=== PATIENT | female | born 1965 | race Caucasian/White ===

== ENCOUNTER 2024-10-10 13:19 | Inpatient (IN) ==
[2024-10-10] MEDS: TICAGRELOR 90 MG TAB PO ONE (13:30)
[2024-10-10] MEDS: HEPARIN SOD (PORCINE) 1000 UNIT/ML IV ONE (13:30)
--- NOTE | 2024-10-10 13:39 | Emergency Department Note ---
Impression & Plan ST elevation (STEMI) myocardial infarction ED Provider Note Provider: Bennett Tilley MD CHIEF COMPLAINT: Chest pain, nausea, jaw pain HISTORY OF PRESENT ILLNESS: Patient is a 58-year-old female presenting via ambulance from [facility] rehab today. Patient from the [facility]. Has been recent September 18 for cocaine rehab. Denies any relapse over the past several weeks. Over the last 2 weeks acetaminophen chest discomfort particular last 3 to 4 days worsening. Worsened today and became somewhat sweaty. Took an aspirin at the facility and then with her ongoing symptoms EMS was activated. Contacted prior to arrival by EMS and heart alert initiated with concerns for inferior inferior lateral STEMI. Patient herself reports 4 out of 10 pain now is 8 out of 10 earlier in the center of the chest rating to the left jaw. She thought she might of had a little bit of tooth issues over the last week or 2. Patient denies any history of diabetes but is a smoker and is a family history of cardiac disease. PAST MEDICAL HISTORY: As noted above MEDICATIONS: Reviewed medication list from the facility SOCIAL HISTORY: Smoker PHYSICAL EXAM: GENERAL: alert and oriented appears mildly uncomfortable. A bit nervous. Head: normocephalic and atraumatic EYES: No injection, discharge or icterus. NECK: Trachea midline. ENT: Mucous membranes pink and moist. LUNGS: Airway patent. No retractions. Breath sounds clear HEART: Regular rate and rhythm. No chest wall tenderness ABDOMEN: Soft and non-tender, without guarding or rebound. SKIN: Acyanotic, warm, dry, without rashes EXTREMITIES: Without swelling, tenderness or deformity NEUROLOGICAL: No focal deficits. No aphasia. No facial droop or slurred speech. EK bpm normal sinus rhythm with PVC. Inferior with some slight lateral ST elevation noted depression and reciprocal changes in 1, aVL, V1 V2. Concerning STEMI CONTINUOUS CARDIAC MONITORING: was ordered and showed a heart rate of 40s to 60s bpm in sinus bradycardia to normal sinus rhythm occasional sinus arrhythmia Patient's laboratory studies and imaging reviewed. Differential includes Cardiac ischemia, aortic dissection, pulmonary embolism, pneumothorax, pneumonia, pericarditis, myocarditis, esophageal rupture, GERD, cholecystitis, pancreatitis, musculoskeletal, as well as other pathologies. IMPRESSION/MEDICAL DECISION MAKING: Patient 4-5 out of 10 pain. Improved with some Zofran for nausea as well as some fentanyl prior to arrival. Benign abdomen denies abdominal pain. EKG concerning for STEMI and heart alert has already been activated. Given aspirin prior to arrival given additional 180 mg of Brilinta as well as 5000 units of heparin here. No trauma history. Blood work is sent. No obvious severe electrolyte abnormality or renal dysfunction apart. Patient family risk factor as well as age and smoking history seems likely CAD. Lower suspicion for PE or dissection at this time. Evaluated by interventional cardiology here and taken to the [facility] for further care. Went through paperwork to try to find a phone number for the patient's daughter but none was obviously found to contact her. At this time no trauma or significant arrhythmias noted. Blood work here leg without severe anemia or significant acute renal dysfunction. Does have a troponin elevation of 71. DIAGNOSIS: STEMI, chest pain DISPOSITION: To the [facility] for further care. Critical Care I have personally spent 31 minutes of critical care time in the direct management of this patient. This includes bedside care, interpretation of diagnostic studies, and testing, discussion with consultants, patient, and other required patient management activities. These 31 minutes is in excess of all separately billable procedures. Past Med/Surg History Problem List (Updated 10/10/24 @ 15:27 by Mikhail Lazaro MD, PhD) Coronary artery disease Atherogenic dyslipidemia Abnormal thyroid blood test Cocaine dependence in remission ST elevation (STEMI) myocardial infarction (Acute) Social History Smoking Status: Current every day smoker Tobacco Type: Cigarettes Cigarettes Per Day: 1/2 PPD; Second Hand Exposure: No; Do You Dip or Chew Tobacco: No; Hx Alcohol Use: No Hx Substance Use: Yes Last Used Substance Other:: 08/15/2025 Preferred Language: Solomon Islander Communication Ability: Effective Knotting Machine Operator Required: No Beliefs That Will Affect Care: None Current Living Situation: Alone Feels Safe at Home: Yes Assistive Devices: Glasses Allergies Allergies Allergy/AdvReac Type Severity Reaction Status Date / Time No Known Allergies Allergy Unverified 10/10/24 14:56 Home Meds Home Medications Medication Instructions Recorded Confirmed famotidine 20 mg PO DAILY 10/10/24 10/10/24 venlafaxine 150 mg PO DAILY 10/10/24 10/10/24 Results & Data (ED) Vital Signs Vital Signs - 24 hr 10/10/24 13:25 10/10/24 13:27 10/10/24 13:27 Temperature 37.3 C Temperature Source Oral Pulse Rate 63 Pulse Rate [Right Finger] 60 Respiratory Rate 20 Respiratory Effort / Characteristics Non-Labored Spontaneous Respiratory Depth Normal Respiratory Pattern Regular Blood Pressure [Right Arm] 123/78 Blood Pressure Mean [Right Arm] 93 Pulse Oximetry 98 Oxygen Delivery Method Room Air Sepsis Recent Fever Within 48 Hours No Sepsis New/Unexplained Change in Mental Status No Sepsis Action Taken by Nursing No Action Required Laboratory Data 10/10/24 15:52 10/10/24 13:27 Lab Results 10/10/24 10/10/24 10/10/24 Range/Units 13:27 13:33 13:40 WBC 11.57 H (4.8-10.8) K/ul RBC 5.21 (4.20-5.40) M/uL Hgb 15.8 (12.0-16.0) g/dl POC Hgb 16.3 H (12.0-16.0) g/dl Hct 46.9 (37.0-47.0) % POC Hct 48 H (37-47) % MCV 90.0 (80.0-100.0) fL MCH 30.3 (25.0-34.0) pg MCHC 33.7 (32.0-36.0) g/dL RDW Std Deviation 42.5 (36.4-46.3) fL RDW Coeff of Sorin 12.9 (11.5-14.5) % Plt Count 271 (130-400) K/uL MPV 11.4 (9.4-12.4) fL Immature Gran % (Auto) 0.3 % Neut % (Auto) 75.9 % Lymph % (Auto) 17.7 % Rains % (Auto) 5.2 % Eos % (Auto) 0.3 % Baso % (Auto) 0.6 % Neut # (Auto) 8.78 H (1.40-6.50) K/uL Lymph # (Auto) 2.05 (1.20-3.40) K/uL Rains # (Auto) 0.60 H (0.11-0.59) K/uL Eos # (Auto) 0.04 (0.00-0.50) K/uL Baso # (Auto) 0.07 (0.00-0.20) K/uL Immature Gran # (Auto) 0.03 (0.01-0.20) K/uL PT 10.2 (9.0-12.0) Seconds INR 0.9 (0.9-1.1) APTT 34 H (21-31) Seconds PTT Ratio 1.3 POC Sodium 138 (135-144) mmol/L Sodium 136 (136-145) mmol/L POC Potassium 4.5 (3.3-5.0) mmol/L Potassium 4.5 (3.5-5.1) mmol/L POC Chloride 105 (101-112) mmol/L Chloride 102 (98-107) mmol/L Carbon Dioxide 26 (21-32) mmol/L POC Total CO2 24 (24-31) mmol/L Anion Gap 8 (3-11) POC Anion Gap 14.0 L (16-25) mmol/L POC BUN 19 H (7-18) mg/dl BUN 18 (6-23) mg/dl Creatinine 0.99 (0.6-1.2) mg/dl POC Creatinine 1.0 (0.6-1.3) mg/dl Est Cr Clr Drug Dosing 62.3 ml/min eGFR 66.09 BUN/Creatinine Ratio 18.2 (10-20) Glucose 168 H (70-99(Fasting)) mg/dl POC Glucose (other) 167 H (70-99) mg/dl Calcium 10.1 (8.6-10.3) mg/dl POC Ioniz Calcium Sandy 1.19 (1.12-1.32) mmol/l Magnesium 2.1 (1.7-2.4) mg/dl Total Bilirubin 0.4 (0.2-1.0) mg/dl AST 17 (13-39) U/L ALT 23 (7-52) U/L Alkaline Phosphatase 128 H (34-104) U/L Total Creatine Kinase 22 L (26-192) U/L Troponin I High Sens 71.1 H* (0-14) pg/ml B-Natriuretic Peptide 37 (0-100) pg/ml Total Protein 8.0 (6.0-8.3) gm/dl Albumin 4.4 (3.4-5.0) gm/dl Globulin 3.6 (2.5-4.0) gm/dl Albumin/Globulin Ratio 1.2 (0.9-2) Lipase 28 (11-82) U/L TSH 6.403 H (0.300-4.500) uIu/ml Free T4 0.53 L (0.61-1.60) ng/dl SARS-CoV-2, RNA, NAAT NEGATIVE (NEGATIVE) Administered Medications Atorvastatin Calcium (Atorvastatin 40 Mg Tab) [facility] [place]: 11/09/24 15:14 Last Admin: 10/10/24 16:01 Dose: 40 mg Documented By: JD Famotidine (Famotidine 20 Mg Tab) 20 mg PO BID [facility] Stop: 11/09/24 16:29 Last Admin: 10/10/24 16:42 Dose: 20 mg Documented By: JD Levothyroxine Sodium (Levothyroxine Sodium 25 Mcg Tablet) 25 mcg PO DAILYBB [facility] Stop: 11/09/24 15:59 Last Admin: 10/10/24 16:34 Dose: 25 mcg Documented By: JD Venlafaxine HCl (Venlafaxine Hcl Xr 150 Mg Capxr) [facility] [place]: 11/09/24 16:29 Last Admin: 10/10/24 16:42 Dose: 150 mg Documented By: JD Discontinued Medications Fentanyl Citrate (Fentanyl Citrate Pf 100 Mcg/2 Ml Vial) Confirm Administered Dose 100 mcg .ROUTE .STK-MED ONE Stop: 10/10/24 13:26 Last Increment: 10/10/24 14:11 Dose: 25 mcg Documented By: MADHU Heparin Sodium (Porcine) (Heparin (Porcine) 1000 Unit/Ml 10 Ml (Bible Worker Use Only)) Confirm Administered Dose 10,000 units .ROUTE .STK-MED ONE Stop: 10/10/24 13:26 Last Admin: 10/10/24 14:11 Dose: Not Given Documented By: MADHU Heparin Sodium (Porcine) (Heparin Sod (Porcine) 1000 Unit/Ml) 5,000 units IV NOW ONE Stop: 10/10/24 13:28 Last Admin: 10/10/24 13:30 Dose: 5,000 units Documented By: JAMES Co-signed By: Heparin Sodium/Sodium Chloride (Heparin In Nss Infusion 1000 Unit/500 Ml (2 U/Ml) Bag) Confirm Administered Dose 3,000 units IV .STK-MED ONE Stop: 10/10/24 13:26 Last Admin: 10/10/24 14:11 Dose: 3,000 units Documented By: AAF Ioversol (Optiray 350) Confirm Administered Dose 1 ml .ROUTE .STK-MED ONE Stop: 10/10/24 13:27 Last Admin: 10/10/24 14:13 Dose: 140 ml Documented By: AAF Midazolam HCl (Midazolam Hcl 1 Mg/Ml 2ml Vial) Confirm Administered Dose 2 mg .ROUTE .STK-MED ONE Stop: 10/10/24 13:26 Last Increment: 10/10/24 14:11 Dose: 1 mg Documented By: AAF Nicardipine HCl (Nicardipine Hcl Inj 2.5 Mg/Ml 10 Ml Amp) Confirm Administered Dose 25 mg .ROUTE .STK-MED ONE Stop: 10/10/24 13:26 Last Admin: 10/10/24 14:12 Dose: 25 mg Documented By: MADHU Nitroglycerin/Dextrose (Nitroglycerin/D5w 100mcg/Ml 20ml Syr) Confirm Administered Dose 2,000 mcg .ROUTE .STK-MED ONE Stop: 10/10/24 13:27 Last Admin: 10/10/24 14:13 Dose: 2,000 mcg Documented By: AAF Ticagrelor (Ticagrelor 90 Mg Tab) 180 mg PO ONE ONE Stop: 10/10/24 13:28 Last Admin: 10/10/24 13:30 Dose: 180 mg Documented By: NRIliana Imaging Data Radiologist's Impression: Chest X-Ray 10/10/24 13:27 INDICATION: Chest pain. TECHNIQUE: Frontal radiograph of the chest. COMPARISON: None. FINDINGS: The cardiomediastinal silhouette and pulmonary vasculature appear within normal limits. Chronic appearing interstitial lung markings. Subsegmental atelectasis in the left lung base. No infiltrate, pleural effusion or pneumothorax. No acute osseous abnormality evident. IMPRESSION: No acute cardiopulmonary process. Electronically signed by Gagan Wade 10-10-2024 3:07 PM Discharge Plan Visit Data Chief Complaint: Heart Alert ED Provider: Bennett Tilley Discharge Problem: ST elevation (STEMI) myocardial infarction Patient Disposition: Admitted As Inpatient Discharge Instructions Interventions: ED Discharge Assessment Last Done: 10/10/24 13:40 Discharge Problem: ST elevation (STEMI) myocardial infarction Qualifiers: Involved coronary artery: unspecified coronary artery Qualified Code(s): I21.3 - ST elevation (STEMI) myocardial infarction of unspecified site
[2024-10-10 13:46] LABS: iSTAT Hemoglobin 16.3 g/dl (12.0-16.0); iSTAT Ionized Calcium 1.19 mmol/l (1.12-1.32); iSTAT Potassium 4.5 mmol/L (3.3-5.0)
[2024-10-10 13:46] LABS: Basophils # (auto) 0.07 K/uL (0.00-0.20); Basophils % (auto) 0.6 %; Eosinophils # (auto) 0.04 K/uL (0.00-0.50); Eosinophils % (auto) 0.3 %; Hematocrit (blood only) 46.9 % (37.0-47.0); Hemoglobin 15.8 g/dl (12.0-16.0); Immature Granulocytes # (auto) 0.03 K/uL (0.01-0.20); Immature Granulocytes % (auto) 0.3 %; Lymphocytes # (auto) 2.05 K/uL (1.20-3.40); Lymphocytes % (auto) 17.7 %; Mean Corpuscular Hemoglobin 30.3 pg (25.0-34.0); Mean Corpuscular Hgb Conc 33.7 g/dL (32.0-36.0); Mean Platelet Volume 11.4 fL (9.4-12.4); Monocytes % (auto) 5.2 %; Neutrophils # (auto) 8.78 K/uL (1.40-6.50); Neutrophils % (auto) 75.9 %; Platelet Count 271 K/uL (130-400); RDW Coefficient of Variation 12.9 % (11.5-14.5); RDW Standard Deviation 42.5 fL (36.4-46.3); Red Blood Count 5.21 M/uL (4.20-5.40); White Blood Count 11.57 K/ul (4.8-10.8)
[2024-10-10 13:54] LABS: INR 0.9 (0.9-1.1); Partial Thromboplastin Ratio 1.3; Partial Thromboplastin Time 34 Seconds (21-31); Prothrombin Time 10.2 Seconds (9.0-12.0)
[2024-10-10 14:02] LABS: Albumin Globulin Ratio 1.2 (0.9-2); Albumin Level 4.4 gm/dl (3.4-5.0); BUN Creatinine Ratio 18.2 (10-20); Bilirubin,Total 0.4 mg/dl (0.2-1.0); Calcium 10.1 mg/dl (8.6-10.3); Creatinine Clr Calc Pharmacy 62.3 ml/min; Globulin 3.6 gm/dl (2.5-4.0); Magnesium 2.1 mg/dl (1.7-2.4); Potassium 4.5 mmol/L (3.5-5.1)
[2024-10-10] MEDS: MIDAZOLAM HCL 1 MG/ML 2ML VIAL ONE (14:11)
[2024-10-10] MEDS: fentaNYL citrate PF 100 MCG/2 ML VIAL ONE (14:11)
[2024-10-10] MEDS: HEPARIN (PORCINE) 1000 UNIT/ML 10 ML (CATH LAB USE ONLY) ONE (14:11)
[2024-10-10] MEDS: niCARdipine HCL INJ 2.5 MG/ML 10 ML AMP ONE (14:12)
[2024-10-10] MEDS: NITROGLYCERIN/D5W 100MCG/ML 20ML SYR ONE (14:13)
[2024-10-10] MEDS: OPTIRAY 350 ONE (14:13)
[2024-10-10 14:17] LABS: Thyroid Stimulating Hormone 6.403 uIu/ml (0.300-4.500)
--- NOTE | 2024-10-10 14:21 | Pre Anesthesia Assessment ---
Date of Service October 10, 2024 Pre Sedation Assessment Vital Signs Temp Pulse Pulse Resp BP Pulse Ox O2 Del Method 10/10/24 13:27 37.3 C 60 20 123/78 98 Room Air 10/10/24 13:25 63 Cardiovascular RRR, no murmur, no edema Additional Comments: grade 2/6 SM Respiratory normal respiratory effort, lungs clear to auscultation Pre-Sedation Airway Assessment Smoking Status: Current every day smoker Mallampati 2 ASA 4 Notes The planned sedation has been discussed with the patient. Informed Consent was obtained. I have identified the patient, determined the appropriateness of sedation and have assessed the patient immediately prior to the procedure. All medicine(s) and interventions are by my order. [facility] [place] Procedure Codes (Charges) Indication for Procedure Indication for procedure: STEMI
[2024-10-10] MEDS ORDERED: ATROPINE SULFATE 0.1 MG/ML 10ML SYR IV PRN (14:22)
[2024-10-10] MEDS ORDERED: ONDANSETRON INJ 2 MG/ML 2 ML VIAL IV PRN (14:22)
[2024-10-10 14:29] LABS: Troponin I High Sensitivity 71.1 pg/ml (0-14)
--- NOTE | 2024-10-10 14:35 | Post Anesthesia Assessment ---
Date of Service October 10, 2024 Post Sedation Assessment Vital Signs Temp Pulse Pulse Resp BP Pulse Ox O2 Del Method 10/10/24 13:27 37.3 C 60 20 123/78 98 Room Air 10/10/24 13:25 63 Recovery Score Activity: Moves 4 extremities Respiration: Deep Breath/Cough Circulation: +/-20% PreAnes Value Consciousness: Fully Awake Oxygen Saturation: > 92% On Room Air Discharge Sedation Level of Care: Fast Track Phase II Post Sedation Plan On clinical assessment, the patient appears to have tolerated the sedation without complications. Patient is recovering as anticipated. Patient will continue to be monitored by nursing and may be discharged when sedation discharge criteria are met per below protocol. Upon Completions of procedure up to 15 minutes continue every 5 minute vital signs and the P.A.R. score; then discharge to a Phase I or Fast Track to Phase II per the following guidelines: * Discharge Patient to appropriate Phase II area if PAR is 8 or greater or return to pre- procedure baseline. The post - procedure orders will be as directed. * If PAR score is less than 8 or not return to pre-procedure baseline then patient will follow Phase I monitoring till PAR is reached for Phase II. The Phase I may be done in procedure room or may call to secure a Phase I area. * If naloxone or flumazenil are used for reversal, hold in Phase I for continued monitoring from when last reversal dose was given for a minimum of 60 minutes or longer pending the nurse and/or physician discretion of patient condition before discharge to Phase II. Please call the Sedation Physician to re-evaluate and complete post-note for discharge to Phase II area. Do NOT discharge from procedure sedation or Phase 1 until post- sedation evaluation note is complete by procedure /sedation MD Sedation Discharge Instructions to be given to the patient at discharge to home. [facility] Procedure Codes (Charges) Indication for Procedure Indication for procedure: ST elevation MA Sedation/Anesthesia Procedure 1: Sedation/Anesthesia: 77690 Mod Sedation by the same physician;Init15 Min Child Age 5 & Up (Initial 15 minutes, start time 1347) Total Sedation Time (minutes): 28 Procedure 2: Sedation/Anesthesia: 83990 Mod Sedation by the same physician; Ea [id number] Minutes (Additional 13 minutes, end time 1415) Total Sedation Time (minutes): 28
[2024-10-10] MEDS ORDERED: Patient's ALLERGY Info needs ENTERED STA (14:38)
[2024-10-10 14:53] LABS: T4 Free Thyroxine 0.53 ng/dl (0.61-1.60)
--- NOTE | 2024-10-10 14:53 | Cardiac Catheterization ---
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 Associate Cardiac Status Clinical evaluation leading to the procedure CAD Presenation: STEMI Anginal Classification: CCS IV Heart Failure: No Cardiogenic Shock within 24 Hours: No Cardiac Arrest within 24 Hours: No Imaging Studies Past 6 Months: No Stress Studies Past 6 Months: No STEMI OR Non-STEMI Symptom Onset Date: 10/10/24 Symptom Onset Time: 08:00 Thrombolytics: No Coronary Anatomy Dominant: Right Left Main (% Stenosis): Normal LAD (% Stenosis): Proximal (Up to 50) and Mid (50 to 60%) D1 (% Stenosis): Normal D2 (% Stenosis): Ostial (40%) Circumflex (% Stenosis): Normal OM1 (% Stenosis): Normal OM2 (% Stenosis): Normal RCA (% Stenosis): Mid (Diffuse 40 to 50%) and Distal (Focal 99% with thrombus) R PDA (% Stenosis): Normal R PL2 (% Stenosis): Normal Diagnostic Physicians Name: Mikhail Lazaro MD, PhD Closure Device Percutaneous Entry Location: Radial Closure Device: Radial Band Recommendations: PCI without planned CABG PCI Indication: PCI for STEMI - Stable First Noted: First EKG Lesion Segment Name: Distal RCA Culprit Artery: Yes Stenosis Prior to Rx (%): 99% Chronic Total Occlusion: No Pre-Procedure TANYA Flow: 1 Previously Treated Lesion: No Lesion Complexity: Non-High/Non-C Lesion Length (mm): 12 Thrombus Present: Yes Bifurcation Lesion: Yes Guidewire Across Lesion: Yes Intraprocedure Events Significant Disection: No Perforation: No Cardiac Cath Procedure Full Procedure Date October 10, 2024 Pre-Procedure Diagnosis Pre-Procedure Diagnosis: STEMI AUC Score AUC Score: 09 Post-Procedure Diagnosis Post-Procedure Diagnosis: Severe CAD and Successful PCI Procedure(s) Performed Procedure(s) Performed: Coronary Angiography and Drug Eluting Stent Car Hop Mikhail Lazaro MD, PhD Estimated Blood Loss Estimated Blood Loss: 5 cc Medication(s) Medication(s): Fentanyl, Heparin, Lidocaine 1%, Nicardipine, Nitroglycerin and Versed Summary of Findings Brief description: Patient was brought urgently to the cardiac catheterization suite where she was shaved and prepped in a sterile fashion. Sedated using IV Versed and fentanyl. Soft tissues of the right wrist were anesthetized using 2 mL of 1% Xylocaine. The right radial artery was accessed with modified Seldinger technique and a 6 Guamanian radial artery glide sheath was placed. Patient was provided anticoagulation with IV heparin and antispasmodics including nicardipine and nitroglycerin. Patient had received heparin in the emergency department so the ACT was checked and additional heparin provided as needed to maintain therapeutic ACT. All catheters were advanced and exchanged over a 0.035 J-tip wire. Right coronary angiography was performed in orthogonal views with a 6 Guamanian JR4 guide catheter. We then proceeded immediately for PCI. BMW reversal guidewire was advanced through the guide catheter and then positioned distally beyond the lesion in the RCA. The lesion was predilated with a 2.5 x 12 mm trek balloon. Initial inflation at 8 cleo followed by a second inflation up to 14 cleo. A 2.75 x 18 mm Sam drug-eluting stent was then advanced and positioned across the lesion where it was deployed at 18 cloe. Bull Float Finisher angiography was performed after the stent delivery system was removed. A 3.0 x 8 mm NC Clint balloon was used to post dilate the proximal portion of the stent at 8 cleo. The balloon was then removed. Bull Float Finisher angiography again performed. The guidewire was removed and final angiographic evaluation was performed. The guide catheter was then removed and exchanged over the J-wire for the diagn ostic left catheter. Left coronary angiography was performed in orthogonal views using a 5 Guamanian JL 3.5 diagnostic catheter. Diagnostic catheter was removed. Radial artery sheath was removed. Hemostasis was obtained using the TR band. Patient was hemodynamically stable and asymptomatic. She was then admitted to the ICU for further workup and management. This ended the case. Coronary angiography findings: [id number] vessel bifurcating into LAD and circumflex. No significant disease. [id number] and transapical. Mild to moderate calcification proximally. Diffuse disease with up to 50 to 60% narrowing at the takeoff of the second diagonal. Additional plaques are 40%. Distal LAD has no significant disease. LAD gives rise to large septal, a small to medium caliber first diagonal and a medium to large caliber branching second diagonal. The ostium of the second diagonal has 40% stenosis. [id number] and nondominant. Travels in the AV groove. Provides an OM1 followed by an atrial branch and then terminates in an OM 2. The circumflex and its branches have no more than mild luminal irregularities. RCA-this is large caliber and dominant. Proximally there is mild luminal irregularities. The mid segment has diffuse disease with multiple stenoses of 40 to 50%. It is also mildly calcified. The distal vessel has a focal 99% st enosis with thrombus occurring prior to the bifurcation but at a small to medium caliber branch point. There is TANYA I flow beyond the lesion. The vessel is seen to bifurcate into a large and long PDA as well as a large caliber multi branching posterolateral. These vessels have no significant disease. PCI of distal RCA-99% stenosis is reduced to 0% stenosis post PCI No evidence of dissection or perforation post PCI TANYA-3 flow post PCI The small branch vessel which originated within the stenosis is jailed by the stent. Initially no significant flow and some staining in that vessel but this cleared by the end of the study. Summary: 1. Patient has multivessel coronary artery disease. 2. Severe distal RCA stenosis is the culprit for the acute myocardial infa rction. Successfully treated with PCI using a single drug-eluting stent. 3. Recommend dual antiplatelet therapy with aspirin 81 mg daily and Brilinta 90 mg p.o. twice daily for at least 1 year. 4. We will initiate guideline directed medical therapy for secondary prevention of coronary artery disease. We are beginning with a low-dose aspirin, high intensity statin therapy, and an angiotensin receptor akilah. Holding off on beta-akilah as the patient is currently under treatment for cocaine addiction. We are obtaining an echocardiogram and we will reassess her medical regimen. Hemodynamics Rest Ao:: 113/74 mmHg Final Ao: 119/79 mmHg LV: Not performed Recommendations Recommendations: PCI without planned CABG Radiation Exposure (mGy) 1160 mGy, fluoroscopy time 5.5 minutes Contrast (mls) 140 cc Anesthesia 1 mg Versed, 25 mcg fentanyl IV. Start time 1347, end time 1415 Procedural Complication(s) None Disposition ICU I attest to the content of the Intraoperative Record and any orders documented therein. Any exceptions are noted below. [facility] [place] Procedure Codes Cardiac Catheterization Procedure 1: Cardiovascular Cath Procedures: 35856 Coronaries Moderate Sedation Procedure 1: Sedation/Anesthesia: 21441 Mod Sedation by the same physician;Init15 Min Child Age 5 & Up (Initial 15 minutes, start time 1347) Procedure 2: Sedation/Anesthesia: 05803 Mod Sedation by the same physician; Ea [id number] Minutes (Additional 13 minutes, end time 1415) Stenting Procedure 1: Cardiovascular Stent Procedures: 06837 Perc transluminal revascularization of acute sub/total occl, aMI (RCA) PG Care Time/CCT Total # of Minutes Spent Total Time Spent with Patient: Total time spent is greater than 50% in coordination of care (as documented) at patient's floor/unit and/or counseling patient:
--- NOTE | 2024-10-10 15:01 | Critical Care Consultation ---
Date of Consultation October 10, 2024 Assessment & Plan (1) ST elevation (STEMI) myocardial infarction: Dual antiplatelet therapy, STEVEN inhibitor, statin therapy -Pending echocardiogram (2) Cocaine dependence in remission: Anticipate return to [facility] upon stabilization (3) Abnormal thyroid blood test: Elevated TSH with low free T4. -Deferred treatment to cardiology and medicine team -given diagnosis of coronary artery disease could consider 25 mcg levothyroxine (based on unknown duration of hypothyroidism) to follow-up with primary care in 4 to 6 weeks: Likely primary hypothyroidism -Cocaine withdrawal can affect TSH and thyroid releasing hormone History of Present Illness Reason for Consultation: ST elevation [place] Attending Physician: BRIA Simpson History of Present Illness Patient a 58-year-old female who presented to the ED and EMS transfer from [facility] rehab for cocaine dependency. Chest discomfort waxing waning over the last 2 weeks acutely worsening in the last 3 to 4 days became diaphoretic today. Found to have an ST elevation [place] went emergently to the [facility] and received 1 drug-eluting stent in the RCA. My evaluation in the ICU patient was largely asymptomatic and TR band was still present over the right radial artery. Allergies Allergy/AdvReac Type Severity Reaction Status Date / Time No Known Allergies Allergy Unverified 10/10/24 14:56 Patient History Social History Smoking Status: Current every day smoker Tobacco Type: Cigarettes Cigarettes Per Day: 1/2 PPD; Second Hand Exposure: No; Do You Dip or Chew Tobacco: No; Hx Alcohol Use: No Hx Substance Use: Yes Last Used Substance Other:: 08/15/2025 Preferred Language: Singaporean Communication Ability: Effective Machine Operator Packaging Required: No Beliefs That Will Affect Care: None Current Living Situation: Alone Feels Safe at Home: Yes Assistive Devices: Glasses Physical Exam Physical Exam: General: Alert. nontoxic. Skin: Warm, dry, Head: Atraumatic Ears, nose, mouth and throat: airway patent Cardiovascular: Normal peripheral perfusion Respiratory: no respiratory distress Gastrointestinal: Non distended Musculoskeletal: TR band present over right wrist Results & Data Results & Data Vital Signs (Past 12 Hours) Vital Signs Temp Pulse Pulse Resp BP Pulse Ox O2 Del Method 10/10/24 13:27 37.3 C 60 20 123/78 98 Room Air 10/10/24 13:25 63 Critical Care Results & Data Vital Signs (Past 12 Hours) Vital Signs Temp Pulse Pulse Resp BP Pulse Ox O2 Del Method 10/10/24 13:27 37.3 C 60 20 123/78 98 Room Air 10/10/24 13:25 63 Lab & Micro Results (Past 24 Hours) RBC 5.21 M/uL (4.20-5.40) 10/10/24 WBC 11.57 K/ul (4.8-10.8) H 10/10/24 Hgb 15.8 g/dl (12.0-16.0) 10/10/24 Hct 46.9 % (37.0-47.0) 10/10/24 MCV 90.0 fL (80.0-100.0) 10/10/24 MCH 30.3 pg (25.0-34.0) 10/10/24 MCHC 33.7 g/dL (32.0-36.0) 10/10/24 RDW Standard Deviation 42.5 fL (36.4-46.3) 10/10/24 RDW Coefficient of Variation 12.9 % (11.5-14.5) 10/10/24 Plt Count 271 K/uL (130-400) 10/10/24 MPV 11.4 fL (9.4-12.4) 10/10/24 Neutrophils (%) (Auto) 75.9 % 10/10/24 Lymphocytes (%) (Auto) 17.7 % 10/10/24 Monocytes # (Auto) 0.60 K/uL (0.11-0.59) H 10/10/24 Eosinophils # (Auto) 0.04 K/uL (0.00-0.50) 10/10/24 Immature Granulocyte % (Auto) 0.3 % 10/10/24 Neutrophils # (Auto) 8.78 K/uL (1.40-6.50) H 10/10/24 Lymphocytes # (Auto) 2.05 K/uL (1.20-3.40) 10/10/24 Monocytes # (Auto) 0.60 K/uL (0.11-0.59) H 10/10/24 Eosinophils # (Auto) 0.04 K/uL (0.00-0.50) 10/10/24 Basophils # (Auto) 0.07 K/uL (0.00-0.20) 10/10/24 Immature Granulocyte # (Auto) 0.03 K/uL (0.01-0.20) 5 Na 136 mmol/L (136-145) 10/10/24 K 4.5 mmol/L (3.5-5.1) 10/10/24 Cl 102 mmol/L (98-107) 10/10/24 CO2 26 mmol/L (21-32) 10/10/24 Anion Gap 8 (3-11) 10/10/24 BUN 18 mg/dl (6-23) 10/10/24 Creatinine 0.99 mg/dl (0.6-1.2) 10/10/24 BUN/Creatinine Ratio 18.2 (10-20) 10/10/24 Glu 168 mg/dl (70-99(Fasting)) H 10/10/24 Ca 10.1 mg/dl (8.6-10.3) 10/10/24 Total Bilirubin 0.4 mg/dl (0.2-1.0) 10/10/24 AST 17 U/L (13-39) 10/10/24 ALT 23 U/L (7-52) 10/10/24 Alkaline Phosphatase 128 U/L (34-104) H 10/10/24 TP 8.0 gm/dl (6.0-8.3) 10/10/24 Albumin 4.4 gm/dl (3.4-5.0) 10/10/24 Globulin 3.6 gm/dl (2.5-4.0) 10/10/24 Albumin/Globulin Ratio 1.2 (0.9-2) 10/10/24 Mg 2.1 mg/dl (1.7-2.4) 10/10/24 13:27 Calcium Level 10.1 mg/dl (8.6-10.3) 10/10/24 13:27 Prothromb Time International Ratio 0.9 (0.9-1.1) 10/10/24 13:2 7 RT Ventilator Mngmt (Last Documented) Ventilator Ordered Settings Respiratory Rate 20 10/10/24 13:27 Ventilator - PT Measurements Respiratory Rate 20 Coding Level of Care Code 07294 IN/OBS CONSULT LVL 4,60M Diagnoses ST elevation (STEMI) myocardial infarction I21.3 Involved coronary artery: unspecified coronary artery Cocaine dependence in remission F14.21 Abnormal thyroid blood test R79.89 (1) ST elevation (STEMI) myocardial infarction Involved coronary artery: unspecified coronary artery Qualified Code(s): I21.3 - ST elevation (STEMI) myocardial infarction of unspecified site
--- NOTE | 2024-10-10 15:09 | XRay Report ---
INDICATION: Chest pain. TECHNIQUE: Frontal radiograph of the chest. COMPARISON: None. FINDINGS: The cardiomediastinal silhouette and pulmonary vasculature appear within normal limits. Chronic appearing interstitial lung markings. Subsegmental atelectasis in the left lung base. No infiltrate, pleural effusion or pneumothorax. No acute osseous abnormality evident. IMPRESSION: No acute cardiopulmonary process. Electronically signed by Gagan Wade 10-10-2024 3:07 PM
--- NOTE | 2024-10-10 15:35 | Cardiology Consultation ---
Date of Consultation October 10, 2024 Assessment & Plan (1) ST elevation (STEMI) myocardial infarction: Secondary to distal RCA plaque rupture. Successful PCI with implantation of a single drug-eluting stent. Good angiographic outcome with a jailed small to medium caliber sidebranch. She will remain on dual antiplatelet therapy with aspirin 81 mg daily and Brilinta 90 mg p.o. twice daily for up to a year. A second year can be can considered although changed to lower dose Brilinta or Plavix would be recommended. At the moment she is hemodynamically stable and asymptomatic. Will continue with risk factor modification and treatment of comorbid disease. I do recommend she remain in the ICU for 24 hours. Continue to monitor for arrhythmia and treat appropriately. Does not appear to have any mechanical complications from myocardial infarction. She has a murmur but this is likely residual from her childhood murmur. We are obtaining an echo just to be sure and additional recommendations pending those results. We are going to follow the cardiac troponins and determine what her EF and wall motion abnormalities are at this time. (2) Atherogenic dyslipidemia: Patient is high risk. High intensity statin therapy has been initiated with a atorvastatin 40 mg daily. In addition we will be checking a fasting lipid panel in the morning. We will titrate her regimen based on findings. (3) Coronary artery disease: Patient has significant residual disease in the RCA as well as in the LAD. This is mild to moderate. It is imperative that she be able to stop smoking as well as continue to refrain from cocaine and other drug abuse. Highly recommend that she participate in cardiac rehab either locally or when she returns home. Her guideline directed medical therapy has been initiated with low-dose aspirin, high intensity statin therapy, and an angiotensin receptor akilah for now. If she does not have cocaine still in her system then we can initiate a beta- akilah as well. Her blood pressure was normal to slightly elevated so we we will need to be cautious about adding medications too quickly. (4) Cocaine dependence in remission: Not clear when she last used cocaine. Will have to talk with her further about how long she has been in rehab etc. In any case we are checking a toxicology screen to make sure that she does not have any cocaine or metabolites in her system as well as not having any additional drugs in her system. We would like to add a beta-akilah and other medications but need to make sure that we are not causing her problems in doing so to too quickly. Plan I will continue to follow with the patient. History of Present Illness Reason for Consultation: ST elevation [place] Attending Physician: BRIA Simpson History of Present Illness 58-year-old female who presented via EMS to the [facility] emergency department with complaint of chest pain. Patient is from the [facility]. She was undergoing rehab for cocaine addiction at a local facility. She tells me for the past 2 days she has had intermittent episodes of chest discomfort. Severity up to 7 out of 10. However, this morning she again developed a chest discomfort and it did not resolve. She was convinced by the rehab staff to seek medical attention. Her EKG demonstrated significant ST elevations in inferolateral leads. A "heart alert" was called and on my arrival she continued with chest pain although less severe than previously. She had received aspirin, Brilinta, and a bolus of heparin (5000 units IV). Her EKG continued to show the ST elevations. In addition to the cocaine abuse she also smokes half a pack a day for 35 years. We quickly discussed my recommendation for emergent cardiac catheterization. The risk, benefits, and alternatives to the procedure were discussed in detail. Her questions were answered in full. She voiced understanding and wished to proceed directly to the cardiac catheterization suite. Patient underwent cardiac catheterization revealing multivessel coronary artery disease. However, she did have a culprit lesion in the distal RCA which was treated by PCI with implantation of a single drug-eluting stent. Good angiographic outcomes with resolution of symptoms and significant improvement in the EKG changes. She has now been admitted to the intensive care unit for further workup and management. I also spoke with her daughter Liz who is a nurse practitioner for pediatric cardiology in the [facility]. She was at the moment in [place] but was returning home with plan to come see her mother tomorrow. Patient has a family history of coronary disease. Her sister a few years ago from complications of acute [place]. She tells me she also had a murmur when she was younger but thought that it had gone away. Allergies Allergy/AdvReac Type Severity Reaction Status Date / Time No Known Allergies Allergy Unverified 10/10/24 14:56 Patient History Social History Smoking Status: Current every day smoker Tobacco Type: Cigarettes Cigarettes Per Day: 1/2 PPD; Second Hand Exposure: No; Do You Dip or Chew Tobacco: No; Hx Alcohol Use: No Hx Substance Use: Yes Last Used Substance Other:: 08/15/2025 Preferred Language: Malawian Communication Ability: Effective Fish Checker Required: No Beliefs That Will Affect Care: None Current Living Situation: Alone Feels Safe at Home: Yes Assistive Devices: Glasses Review of Systems Review of Systems: Negative except as per HPI Physical Exam Constitutional: WD/WN, vitals as above Eyes: Extraocular muscles intact. Sclera are anicteric. ENMT: Oral mucosa is pink moist and intact. Neck: No JVD or bruits appreciated. Respiratory: Clear to auscultation bilaterally. No wheezing, rhonchi, or rales. Fair air movement. Cardiovascular: Regular rate and rhythm. Grade 2/6 systolic murmur. No edema. 2+ distal pulses. Musculoskeletal: no cyanosis or clubbing, extremities motor strength 5/5 Neurologic: Cognition is intact. Speech is fluent. No focal deficits. Moves all 4 extremities voluntarily. No tremor. Psychiatric: A+Ox3, euthymic affect (Mildly anxious) Results & Data Vital Signs (Past 12 Hours) Vital Signs Temp Pulse Pulse Resp BP Pulse Ox O2 Del Method 10/10/24 14:52 36.7 C 76 16 123/84 93 Room Air 10/10/24 13:27 37.3 C 60 20 123/78 98 Room Air 10/10/24 13:25 63 PG Care Time/CCT Total # of Minutes Spent Total Time Spent with Patient: Total time spent is greater than 50% in coordination of care (as documented) at patient's floor/unit and/or counseling patient: Total Critical Care Time: 50 A total of 50 minutes critical care time was spent in the initial evaluation of the patient, review of her labs, discussion with the patient, her daughter, the ER team, as well as both the [employer] team and the ICU nursing staff. Additionally, critical care time was spent in the formulation and implementation of a plan of care and all associated documentation. This time is exclusive of the time spent for the procedure. Coding Level of Care Code 74824 CRITICAL CARE 1ST 30-74M Diagnoses ST elevation (STEMI) myocardial infarction I21.3 Involved coronary artery: unspecified coronary artery Atherogenic dyslipidemia E78.5 Coronary artery disease I25.10 Cocaine dependence in remission F14.21 Time Spent (min) 50 (1) ST elevation (STEMI) myocardial infarction Involved coronary artery: unspecified coronary artery Qualified Code(s): I21.3 - ST elevation (STEMI) myocardial infarction of unspecified site
--- NOTE | 2024-10-10 15:59 | History & Physical Report ---
Date of Service October 10, 2024 Assessment & Plan (1) Coronary artery disease: (2) Atherogenic dyslipidemia: (3) Abnormal thyroid blood test: (4) Cocaine dependence in remission: Plan The patient is a 58-year-old female with a past medical history of cocaine abuse in remission who reported from a rehab facility to the ER on 10/10/2024 with complaints of chest pain found to have RCA occlusion s/p PCI with drug-eluting stent admitted for further management Assessment and plan: Multivessel CAD Distal RCA blockage s/p PCI drug-eluting stent Initial EKG with ST elevation, significant improvement in EKG post cath Cardiology consulted and following, admitted to the ICU for further management Started on aspirin/Brilinta/statin/losartan, awaiting echo Hypothyroidism: TSH elevated with low free T4 Will initiate 25 mcg of levothyroxine, will need outpatient follow-up in 6 weeks and repeat blood work Hx GERD: Increase Pepcid to 20 mg twice daily Hx depression: Continue home dose of Effexor 150 mg daily A total of 60 minutes was spent on chart review/facilitating plan of care/reviewing diagnostic data/discussion with consultants Full code DVT prophylaxis: SCDs Admission and Anticipated Discharge Date Admission Date: October 10, 2024 History of Present Illness Chief Complaint: Chest pain Primary Care Provider: NO PCP The patient is a 58-year-old female with a past medical history of cocaine dependency, in remission, depression, GERD who was transferred over from [facility] rehab to the ER today 10/10/2024 with complaints of chest discomfort that has been waxing and waning over the past 2 weeks which has acutely worsened in the past 3 to 4 days and the patient reportedly became diaphoretic today. Patient is originally from [facility]. The patient's EKG showed significant ST elevations in inferolateral leads. A heart alert was called prior to arrival to the ER. The patient had received aspirin/Brilinta and a bolus of heparin, her EKG continue with ST elevations. Emergent cardiac catheterization was recommended by glassware engraver. On exam, the patient is resting comfortably and reports her chest pain is much improved. Does report 1/10 sternal chest pain that she relates to GERD. Patient has a history of coronary artery disease in her family. Patient's sister a few years ago from complications from [place] patient also has a history of a murmur from when she was younger. Patient also reports her father had his first heart attack when he was 50 and had CABG x 4 Patient is a current smoker over the past 35 years. Troponin was elevated at 71, TSH elevated at 6.4 On arrival to the ED, labs are remarkable for WBC 11.5, anion gap 14, BUN 19, glucose 168 with a free T4 of 0.5, per patient, no history of hypothyroidism prior to arrival. The patient was admitted to the ICU s/p cardiac catheterization treated by PCI/drug-eluting stent with improvement in EKG changes Allergies Allergy/AdvReac Type Severity Reaction Status Date / Time No Known Allergies Allergy Unverified 10/10/24 14:56 Home Medications Medication Instructions Recorded Confirmed Type famotidine 20 mg PO DAILY 10/10/24 10/10/24 History venlafaxine 150 mg PO DAILY 10/10/24 10/10/24 History Past Med/Surg History Problem List (Updated 10/10/24 @ 15:27 by Mikhail Lazaro MD, PhD) Coronary artery disease Atherogenic dyslipidemia Abnormal thyroid blood test Cocaine dependence in remission ST elevation (STEMI) myocardial infarction (Acute) Social History Smoking Status: Current every day smoker Tobacco Type: Cigarettes Cigarettes Per Day: 1/2 PPD; Second Hand Exposure: No; Do You Dip or Chew Tobacco: No; Hx Alcohol Use: No Hx Substance Use: Yes Last Used Substance Other:: 08/15/2025 Preferred Language: Slovak Communication Ability: Effective Neonatal Specialist Required: No Beliefs That Will Affect Care: None Current Living Situation: Alone Feels Safe at Home: Yes Assistive Devices: Glasses Review of Systems Review of Systems: All systems reviewed & are unremarkable except as noted in HPI & below Physical Exam Constitutional: WD/WN, vitals as above + obese Eyes: PERRL, conjunctivae normal, anicteric sclerae ENMT: external ear and nose normal, oropharynx normal Neck: trachea midline, no thyromegaly Respiratory: normal respiratory effort, lungs clear to auscultation Cardiovascular: RRR, no murmur, no edema Gastrointestinal (Abdomen): normal bowel sounds, soft, nontender, no hepatosplenomegaly Musculoskeletal: no cyanosis or clubbing, extremities motor strength 5/5 Skin: no rashes, warm and dry Neurologic: PERRL, EOMI, accommodation nl, no face palsy, no dysarthria Psychiatric: A+Ox3, euthymic affect Lymphatic: no cervical or axillary lymphadenopathy Results & Data Results & Data Vital Signs (Past 12 Hours) Vital Signs Temp Pulse Pulse Resp BP Pulse Ox O2 Del Method 10/10/24 14:52 36.7 C 76 16 123/84 93 Room Air 10/10/24 13:27 37.3 C 60 20 123/78 98 Room Air 10/10/24 13:25 63 Diagnostic Findings Laboratory Results WBC 11.57 K/ul (4.8-10.8) H 10/10/24 13:27 RBC 5.21 M/uL (4.20-5.40) 10/10/24 13:27 Hgb 15.8 g/dl (12.0-16.0) 10/10/24 13:27 POC Hgb 16.3 g/dl (12.0-16.0) H 10/10/24 13:33 Hct 46.9 % (37.0-47.0) 10/10/24 13:27 POC Hct 48 % (37-47) H 10/10/24 13:33 MCV 90.0 fL (80.0-100.0) 10/10/24 13:27 MCH 30.3 pg (25.0-34.0) 10/10/24 13:27 MCHC 33.7 g/dL (32.0-36.0) 10/10/24 13:27 RDW Std Deviation 42.5 fL (36.4-46.3) 10/10/24 13:27 RDW Coeff of Sorin 12.9 % (11.5-14.5) 10/10/24 13:27 Plt Count 271 K/uL (130-400) 10/10/24 13:27 MPV 11.4 fL (9.4-12.4) 10/10/24 13:27 Immature Gran % (Auto) 0.3 % 10/10/24 13:27 Neut % (Auto) 75.9 % 10/10/24 13:27 Lymph % (Auto) 17.7 % 10/10/24 13:27 [place] % (Auto) 5.2 % 10/10/24 13:27 Eos % (Auto) 0.3 % 10/10/24 13:27 Baso % (Auto) 0.6 % 10/10/24 13:27 Neut # (Auto) 8.78 K/uL (1.40-6.50) H 10/10/24 13:27 Lymph # (Auto) 2.05 K/uL (1.20-3.40) 10/10/24 13:27 [place] # (Auto) 0.60 K/uL (0.11-0.59) H 10/10/24 13:27 Eos # (Auto) 0.04 K/uL (0.00-0.50) 10/10/24 13:27 Baso # (Auto) 0.07 K/uL (0.00-0.20) 10/10/24 13:27 Immature Gran # (Auto) 0.03 K/uL (0.01-0.20) 10/10/24 13:27 PT 10.2 Seconds (9.0-12.0) 10/10/24 13:27 INR 0.9 (0.9-1.1) 10/10/24 13:27 APTT 34 Seconds (21-31) H 10/10/24 13:27 PTT Ratio 1.3 10/10/24 13:27 Activ Coag Time Kaolin 291 SECONDS (94-140) H 10/10/24 13:58 POC Sodium 138 mmol/L (135-144) 10/10/24 13:33 Sodium 136 mmol/L (136-145) 10/10/24 13:27 POC Potassium 4.5 mmol/L (3.3-5.0) 10/10/24 13:33 Potassium 4.5 mmol/L (3.5-5.1) 10/10/24 13:27 POC Chloride 105 mmol/L (101-112) 10/10/24 13:33 Chloride 102 mmol/L (98-107) 10/10/24 13:27 Carbon Dioxide 26 mmol/L (21-32) 10/10/24 13:27 POC Total CO2 24 mmol/L (24-31) 10/10/24 13:33 Anion Gap 8 (3-11) 10/10/24 13:27 POC Anion Gap 14.0 mmol/L (16-25) L 10/10/24 13:33 POC BUN 19 mg/dl (7-18) H 10/10/24 13:33 BUN 18 mg/dl (6-23) 10/10/24 13:27 Creatinine 0.99 mg/dl (0.6-1.2) 10/10/24 13:27 POC Creatinine 1.0 mg/dl (0.6-1.3) 10/10/24 13:33 Est Cr Clr Drug Dosing 62.3 ml/min 10/10/24 13:27 eGFR 66.09 10/10/24 13:27 BUN/Creatinine Ratio 18.2 (10-20) 10/10/24 13:27 Glucose 168 mg/dl (70-99(Fasting)) H 10/10/24 13:27 POC Glucose (other) 167 mg/dl (70-99) H 10/10/24 13:33 Calcium 10.1 mg/dl (8.6-10.3) 10/10/24 13:27 POC Ioniz Calcium Sandy 1.19 mmol/l (1.12-1.32) 10/10/24 13:33 Magnesium 2.1 mg/dl (1.7-2.4) 10/10/24 13:27 Total Bilirubin 0.4 mg/dl (0.2-1.0) 10/10/24 13:27 AST 17 U/L (13-39) 10/10/24 13:27 ALT 23 U/L (7-52) 10/10/24 13:27 Alkaline Phosphatase 128 U/L (34-104) H 10/10/24 13:27 Total Creatine Kinase 22 U/L (26-192) L 10/10/24 13:27 Troponin I High Sens 71.1 pg/ml (0-14) H* 10/10/24 13:27 B-Natriuretic Peptide 37 pg/ml (0-100) 10/10/24 13:27 Total Protein 8.0 gm/dl (6.0-8.3) 10/10/24 13:27 Albumin 4.4 gm/dl (3.4-5.0) 10/10/24 13:27 Globulin 3.6 gm/dl (2.5-4.0) 10/10/24 13:27 Albumin/Globulin Ratio 1.2 (0.9-2) 10/10/24 13:27 Lipase 28 U/L (11-82) 10/10/24 13:27 TSH 6.403 uIu/ml (0.300-4.500) H 10/10/24 13:27 Free T4 0.53 ng/dl (0.61-1.60) L 10/10/24 13:27 SARS-CoV-2, RNA, NAAT NEGATIVE (NEGATIVE) 10/10/24 13:40 Impressions Chest X-Ray 10/10/24 13:27 INDICATION: Chest pain. TECHNIQUE: Frontal radiograph of the chest. COMPARISON: None. FINDINGS: The cardiomediastinal silhouette and pulmonary vasculature appear within normal limits. Chronic appearing interstitial lung markings. Subsegmental atelectasis in the left lung base. No infiltrate, pleural effusion or pneumothorax. No acute osseous abnormality evident. IMPRESSION: No acute cardiopulmonary process. Electronically signed by Gagan Wade 10-10-2024 3:07 PM Supervising Physician Co-Signing Physician Notes Patient is a 58-year-old female with history of drug abuse, depression, tobacco use disorder, GERD and other medical problems who is currently at drug rehab facility complaints of chest discomfort, retrosternal, radiating to back associated with throat pain. She has been having intermittent chest pain for the past 2 weeks which is gradually been worsening. She reports being diaphoretic today associated with some shortness of breath. While in ED, patient's EKG suggestive of STEMI and heart alert was called and patient had emergent cardiac catheterization which showed multivessel coronary artery disease, severe distal RCA stenosis and has PCI with drug-eluting stent. Patient is admitted to ICU for further management. Patient reports last cocaine use 1 month ago. Please review HPI for complete details of presentation. I personally reviewed blood work and imaging studies. Noted abnormal thyroid function tests, elevated troponin, WBC count. Chest x-ray showed no acute process. Physical Exam: Vitals signs as noted above General Appearance:Obese, no apparent distress Head: normocephalic, Atraumatic Eyes: normal inspection, EOMI Neck: supple, Trachea midline Respiratory/Chest: Normal breath sounds, CTA, No accessory muscle use Cardiovascular: S1, S2, No murmur Abdomen/GI:Soft, Non tender, Bowel sounds present Extremities/Musculoskeletal:normal inspection, no edema Neurologic/Psych:AAOX3, grossly no focal neurological deficits Skin: normal color, warm STEMI S/P PCI Multivessel coronary artery disease Ongoing tobacco use disorder Continue aspirin, Brilinta, statin, losartan Resting echo pending Consider adding metoprolol 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 I have reviewed the advanced practitioner's documentation on the date of service referred in note and agree with plan. Patient's care is coordinated with Cristobal FRASER. Please refer to the documentation above for details of patient's presentation and for discussion of other issues. I spent a total [id number] coordinating, documenting, and providing care for this patient excluding time spent in the performance of separately billed services or time spent by another provider/QHP.
[2024-10-10] MEDS: ATORVASTATIN 40 MG TAB PO SCH (16:01)
[2024-10-10 16:25] LABS: Basophils # (auto) 0.05 K/uL (0.00-0.20); Basophils % (auto) 0.5 %; Eosinophils # (auto) 0.05 K/uL (0.00-0.50); Eosinophils % (auto) 0.5 %; Hematocrit (blood only) 47.7 % (37.0-47.0); Hemoglobin 15.9 g/dl (12.0-16.0); Immature Granulocytes # (auto) 0.06 K/uL (0.01-0.20); Immature Granulocytes % (auto) 0.6 %; Lymphocytes # (auto) 1.47 K/uL (1.20-3.40); Lymphocytes % (auto) 13.8 %; Mean Corpuscular Hemoglobin 29.7 pg (25.0-34.0); Mean Corpuscular Hgb Conc 33.3 g/dL (32.0-36.0); Mean Platelet Volume 11.5 fL (9.4-12.4); Monocytes # (auto) 0.41 K/uL (0.11-0.59); Monocytes % (auto) 3.8 %; Neutrophils # (auto) 8.65 K/uL (1.40-6.50); Neutrophils % (auto) 80.8 %; Platelet Count 254 K/uL (130-400); RDW Standard Deviation 42.2 fL (36.4-46.3); Red Blood Count 5.36 M/uL (4.20-5.40); White Blood Count 10.69 K/ul (4.8-10.8)
[2024-10-10] MEDS ORDERED: FAMOTIDINE 10 MG TABLET PO SCH (16:30)
[2024-10-10] MEDS: LEVOTHYROXINE SODIUM 25 MCG TABLET PO SCH (16:34)
[2024-10-10] MEDS: FAMOTIDINE 20 MG TAB PO SCH (16:42)
[2024-10-10] MEDS: VENLAFAXINE HCL XR 150 MG CAPXR PO SCH (16:42)
[2024-10-10 16:52] LABS: Amphetamines+Metham, Urine Neg (Neg); Barbiturates, Urine Neg (Neg); Benzodiazepine, Urine Pos (Neg); Cocaine, Urine Neg (Neg); Fentanyl, Urine Pos (Neg); MDMA (Ecstacy), Urine Neg (Neg); Marijuana, Urine Neg (Neg); Methadone, Urine Neg (Neg); Opiate, Urine Neg (Neg); Phencyclidine, Urine Neg (Neg)
[2024-10-10 17:12] LABS: Estimated Average Glucose 128 mg/dl; Hemoglobin A1C 6.1 % (4.5-5.6)
--- NOTE | 2024-10-10 17:20 | XCELERA ---
[id number] [id number]
[2024-10-10] MEDS: ACETAMINOPHEN 325 MG TAB PO PRN (19:55)
[2024-10-11] MEDS ORDERED: MELATONIN 3 MG TAB PO PRN (01:03)
[2024-10-11 05:29] LABS: Chol HDL Ratio 6.9 (0-5); Phosphorus 3.8 mg/dl (2.5-4.9)
[2024-10-11 05:47] LABS: Troponin I High Sensitivity 6435.1 pg/ml (0-14)
--- NOTE | 2024-10-11 07:44 | Critical Care Progress Note ---
Date of Service October 11, 2024 Assessment & Plan (1) ST elevation (STEMI) myocardial infarction: (2) Cocaine dependence in remission: (3) Coronary artery disease: (4) Atherogenic dyslipidemia: (5) Hypothyroidism: Plan --STEMI Secondary to distal RCA plaque rupture S/p NAHED 10/10/2024 Continue with dual antiplatelet therapy with aspirin and Brilinta -Dyslipidemia Continue with 40 mg atorvastatin -- Hypothyroidism Continue with levothyroxine -- Anxiety/depression -- History of substance abuse Currently in remission --Prophylaxis VTE: IPC GI: Famotidine Lines: Peripheral Diet: Cardiac Plan: In/out: +200, urine output 1200 mL Continue with dual antiplatelet therapy Patient hemodynamically stable to be downgrade to the telemetry floor Case was discussed with patient's daughters who are at bedside as well as primary team Please note the above document was generated using voice recognition software. It may contain grammatical, syntax or spelling errors.Any formal questions or concerns about the content, text or information contained within the body of this dictation should be directly addressed to the provider for clarification. Admission and Anticipated Discharge Date Admission Date: October 10, 2024 Subjective Patient seen and examined at bedside. No acute distress, no adverse events overnight She was saturating 95 to 96% on room air. Systolic blood pressure was in the 110s with heart rate in the 90s Denied any chest pain, no headache, no dizziness No nausea vomiting Fair appetite Review of Systems 2 Review of Systems: All systems reviewed & are unremarkable except as noted in Subjective Physical Exam 2 Physical Exam: Constitutional: No acute distress HEENT: EOMI, PERRLA Respiratory system: Good air entry bilaterally, no wheeze, no rhonchi, mild crackles bilateral lower lobe CVS: S1-S2 positive, positive 2 out of 6 systolic murmur appreciated best at apex, tachycardia Abdomen: Soft, nontender, nondistended, positive bowel sounds x4 Extremities: +2 pulses bilaterally radialis/ dorsalis pedis, no cyanosis, no edema Neuro: Awake alert oriented x3 Psych: Normal mood and affect G/U: No Morris Skin: no rashes, warm and dry Lymphatic: no cervical or axillary lymphadenopathy Results & Data Results & Data Vital Signs (Past 12 Hours) Vital Signs Temp Pulse Pulse Resp BP Pulse Ox O2 Del Method 10/11/24 06:00 75 19 102/75 92 Room Air 10/11/24 05:00 83 17 118/84 93 Room Air 10/11/24 04:00 70 16 127/88 93 Room Air 10/11/24 03:00 65 16 110/82 92 Room Air 10/11/24 02:00 74 18 109/65 94 Room Air 10/11/24 01:00 36.5 C 70 14 105/63 93 Room Air 10/11/24 00:00 72 12 115/81 93 Room Air 10/10/24 23:46 69 10/10/24 23:00 67 17 117/76 93 Room Air 10/10/24 22:00 70 15 129/86 94 Room Air 10/10/24 21:00 36.5 C 72 12 129/99 95 Room Air 10/10/24 20:07 67 14 93 Room Air 10/10/24 20:00 70 12 120/71 94 Room Air Laboratory Results 10/10/24 15:52 10/10/24 13:27 Coding Level of Care Code 09833 SUB INP/OBS CARE 2/35MIN Diagnoses ST elevation (STEMI) myocardial infarction I21.3 Involved coronary artery: unspecified coronary artery Cocaine dependence in remission F14.21 Coronary artery disease I25.10 Atherogenic dyslipidemia E78.5 Hypothyroidism E03.9 (1) ST elevation (STEMI) myocardial infarction Involved coronary artery: unspecified coronary artery Qualified Code(s): I 21.3 - ST elevation (STEMI) myocardial infarction of unspecified site
[2024-10-11 08:43] LABS: Basophils # (auto) 0.06 K/uL (0.00-0.20); Basophils % (auto) 0.7 %; Eosinophils # (auto) 0.04 K/uL (0.00-0.50); Eosinophils % (auto) 0.5 %; Hematocrit (blood only) 47.1 % (37.0-47.0); Immature Granulocytes # (auto) 0.02 K/uL (0.01-0.20); Immature Granulocytes % (auto) 0.2 %; Lymphocytes # (auto) 2.36 K/uL (1.20-3.40); Lymphocytes % (auto) 27.9 %; Mean Corpuscular Hemoglobin 30.2 pg (25.0-34.0); Mean Platelet Volume 11.7 fL (9.4-12.4); Monocytes % (auto) 4.7 %; Neutrophils # (auto) 5.57 K/uL (1.40-6.50); Platelet Count 267 K/uL (130-400); RDW Standard Deviation 42.5 fL (36.4-46.3); Red Blood Count 5.29 M/uL (4.20-5.40); White Blood Count 8.45 K/ul (4.8-10.8)
[2024-10-11 09:00] LABS: Albumin Globulin Ratio 1.1 (0.9-2); Albumin Level 4.3 gm/dl (3.4-5.0); Bilirubin,Total 0.7 mg/dl (0.2-1.0); Calcium 9.8 mg/dl (8.6-10.3); Creatinine Clr Calc Pharmacy 66.6 ml/min; Globulin 3.8 gm/dl (2.5-4.0); Total Protein 8.1 gm/dl (6.0-8.3)
[2024-10-11 09:08] LABS: Troponin I High Sensitivity 5910.5 pg/ml (0-14)
[2024-10-11] MEDS: ASPIRIN 81 MG ECTAB PO SCH (09:23)
[2024-10-11] MEDS: LOSARTAN POTASSIUM 25 MG TAB PO SCH (09:24)
[2024-10-11] MEDS: TICAGRELOR 90 MG TAB PO SCH (09:25)
--- NOTE | 2024-10-11 11:35 | Electrocardiogram Report ---
Test Reason : Blood Pressure : */* mmHG Vent. Rate : 64 BPM Atrial Rate : 64 BPM P-R Int : 152 ms QRS Dur : 96 ms QT Int : 388 ms P-R-T Axes : 48 76 101 degrees QTcB Int : 400 ms Normal sinus rhythm ST elevation consider inferolateral injury or acute infarct ACUTE PR / STEMI Consider posterior wall involvment Abnormal ECG No previous ECGs available Confirmed by Kwaku Kc ([id number]) on 10/11/2024 11:35:16 AM Referred By: REFERRED SELF Confirmed By: Kwaku Kc
--- NOTE | 2024-10-11 11:36 | Electrocardiogram Report ---
Test Reason : Blood Pressure : */* mmHG Vent. Rate : 75 BPM Atrial Rate : 75 BPM P-R Int : 134 ms QRS Dur : 94 ms QT Int : 406 ms P-R-T Axes : 43 48 20 degrees QTcB Int : 453 ms Normal sinus rhythm with sinus arrhythmia Abnormal ECG When compared with ECG of 10-Oct-2024 13:24, (unconfirmed) Significant changes have occurred Confirmed by Kwaku Kc ([id number]) on 10/11/2024 11:36:04 AM Referred By: REFERRED SELF Confirmed By: Kwaku Kc
--- NOTE | 2024-10-11 11:48 | Hospitalist Progress Note ---
Date of Service October 11, 2024 Assessment & Plan (1) Coronary artery disease: (2) Atherogenic dyslipidemia: (3) Abnormal thyroid blood test: (4) Cocaine dependence in remission: Plan The patient is a 58-year-old female with a past medical history of cocaine abuse in remission who reported from a rehab facility to the ER on 10/10/2024 with complaints of chest pain found to have RCA occlusion s/p PCI with drug-eluting stent admitted for further management Assessment and plan: Multivessel CAD Distal RCA blockage s/p PCI drug-eluting stent Initial EKG with ST elevation, significant improvement in EKG post cath Cardiology consulted and following, admitted to the ICU for further management Started on aspirin/Brilinta/statin/losartan, awaiting echo 10/11 doing fine overall chest pain resolved trop trended down echo: 55-60%, segmental wall motion abnormalities, inferior STEMI grade 1 diastolic dysfunction mild to moderate MR mild Dyslipidemia PreDM Atorvastatin 40mg po daily started ff up as outpatient Hypothyroidism: TSH elevated with low free T4 Will initiate 25 mcg of levothyroxine, will need outpatient follow-up in 6 weeks and repeat blood work Hx GERD: Increase Pepcid to 20 mg twice daily Hx depression: Continue home dose of Effexor 150 mg daily Full code DVT prophylaxis: SCDs Disposition likely to return to [facility] tomorrow Admission and Anticipated Discharge Date Admission Date: October 10, 2024 Subjective ff up for STEMI, etc seen resting in bed, comfortable states she feels fine overall in good spirits denies recurrence of chest pain no shortness of breath, palpitations, dizziness reports restless legs yesterday no other symptoms Review of Systems Review of Systems: all noted and negative except for above Physical Exam Physical Exam: General- oriented x 3, not in distress, speaks in sentences with no effort or accessory muscle use Eyes- anicteric Neck- no JVD Lungs- clear breath sounds bilaterally, no crackles/wheezing Heart- normal rate, regular rhythm; no murmurs Abdomen- normal bowel sounds, nondistended, soft, no tenderness Extremities- no pretibial edema, no calf tenderness Neuro- alert, oriented x 3; no gross focal neurologic deficits Skin- warm & dry Results & Data Results & Data Vital Signs (Past 12 Hours) Vital Signs Temp Pulse Pulse Resp BP BP Pulse Ox 10/11/24 09:53 115/85 10/11/24 09:53 115/85 10/11/24 09:45 87 16 95 10/11/24 09:00 92 H 19 93 10/11/24 09:00 100/71 10/11/24 08:32 110/76 10/11/24 08:24 100 H 19 93 10/11/24 08:00 74 10/11/24 08:00 36.8 C 10/11/24 07:00 113/80 10/11/24 06:57 73 19 93 10/11/24 06:00 75 19 102/75 92 10/11/24 05:00 83 17 118/84 93 10/11/24 04:00 70 16 127/88 93 10/11/24 03:00 65 16 110/82 92 10/11/24 02:00 74 18 109/65 94 10/11/24 01:00 36.5 C 70 14 105/63 93 10/11/24 00:00 72 12 115/81 93 10/10/24 23:46 69 O2 Del Method 10/11/24 09:53 10/11/24 09:53 10/11/24 09:45 10/11/24 09:00 10/11/24 09:00 10/11/24 08:32 10/11/24 08:24 10/11/24 08:00 10/11/24 08:00 10/11/24 07:00 10/11/24 06:57 Room Air 10/11/24 06:00 Room Air 10/11/24 05:00 Room Air 10/11/24 04:00 Room Air 10/11/24 03:00 Room Air 10/11/24 02:00 Room Air 10/11/24 01:00 Room Air 10/11/24 00:00 Room Air 10/10/24 23:46 all noted and reviewed including below
[2024-10-11] MEDS: NICOTINE 7 MG/24 HR TDSY TD SCH (13:37)
[2024-10-11 15:12] LABS: Basophils # (auto) 0.07 K/uL (0.00-0.20); Basophils % (auto) 0.8 %; Eosinophils # (auto) 0.05 K/uL (0.00-0.50); Eosinophils % (auto) 0.5 %; Hematocrit (blood only) 46.3 % (37.0-47.0); Hemoglobin 15.4 g/dl (12.0-16.0); Immature Granulocytes # (auto) 0.04 K/uL (0.01-0.20); Immature Granulocytes % (auto) 0.4 %; Lymphocytes # (auto) 2.53 K/uL (1.20-3.40); Lymphocytes % (auto) 27.4 %; Mean Corpuscular Hemoglobin 29.3 pg (25.0-34.0); Mean Corpuscular Hgb Conc 33.3 g/dL (32.0-36.0); Mean Corpuscular Volume 88.2 fL (80.0-100.0); Mean Platelet Volume 11.2 fL (9.4-12.4); Monocytes # (auto) 0.71 K/uL (0.11-0.59); Monocytes % (auto) 7.7 %; Neutrophils # (auto) 5.83 K/uL (1.40-6.50); Neutrophils % (auto) 63.2 %; Platelet Count 259 K/uL (130-400); Red Blood Count 5.25 M/uL (4.20-5.40); White Blood Count 9.23 K/ul (4.8-10.8)
--- NOTE | 2024-10-11 16:57 | Cardiology Progress Note ---
Date of Service October 11, 2024 Assessment & Plan (1) Coronary artery disease: Plan: Status post PCI to the RCA. Mild to moderate residual disease as described in the cath report. No further angina. She will remain on dual antiplatelet therapy with aspirin 81 mg daily and Brilinta 90 mg p.o. twice daily. For the most part her heart rate has been at target and her blood pressure has also been at target. A few highs and lows for each of those. I do not think I will start a beta-akilah at this time. Hold off on this until later or she can discuss it further with cardiology when she returns to [place]. Therefore, continue statin and angiotensin receptor akilah. Fortunately her troponin peaked at only 6435 and she has preserved LV function. Her segmental wall motion abnormality should improve significantly after revascularization. I strongly encouraged her to participate in cardiac rehab after discharge. I also strongly encouraged her to stop smoking. We need to manage her other risk factors as below. (2) Atherogenic dyslipidemia: Plan: Patient is high risk. Her untreated lipids are triglycerides 198 mg/dL, total cholesterol 264 mg/dL, LDL 186 mg/dL and HDL 38 mg/dL. None of these are at target. Under a "high risk strategy" we will try to reduce her LDL to 50% or more of her untreated baseline LDL. That makes her minimum target of 93 mg/dL. Her HDL is also low for a woman and she should try to begin exercise. She would also benefit from a low-fat diet in addition to low-cholesterol. Given her family history of cardiac disease I suspect she has heterozygous familial hypercholesterolemia based on these numbers. (3) Abnormal thyroid blood test: Plan: She is hypothyroid based on her TSH and free T4. This certainly can contribute to her dyslipidemia as well as give her reduced cardiac function. Therapy per endocrinology. (4) ST elevation (STEMI) myocardial infarction: (5) NSVT (nonsustained ventricular tachycardia): Plan: Very brief and asymptomatic post revascularization arrhythmia. Likely should improve with time. Does not have significant LV dysfunction which would be more suggestive of perpetually increased risk. If her blood pressure would allow a beta-akilah would be beneficial. Currently I am not confident that that can be tolerated. At least her cocaine screen was negative so she should not have any adverse effects from cocaine plus beta-akilah use. Plan If patient remains stable she will be appropriate for discharge tomorrow. I would like to see her in the office in follow-up at least once before she leaves the area. At the moment I have a 9:00 opening on either or Friday this week if she is interested. Otherwise I can see her in 2 weeks. Admission and Anticipated Discharge Date Admission Date: October 10, 2024 Subjective Patient was seen in ICU this morning. She reports no recurrence of chest pain and no shortness of breath. She is tolerating her medications. Review of the surveillance system monitor demonstrates PVCs and occasionally a pair or triplet. Noted 1 brief run of NSVT up to 5 beats. I think she is now appropriate for transfer to PCU. As long as she has no complications in the next 24 hours she will likely be appropriate for discharge tomorrow. She would be returning back to her rehab facility where she has an additional 10 days of rehab to complete. Review of Systems Review of Systems: Negative except as per HPI Physical Exam Constitutional: WD/WN, vitals as above Eyes: Extraocular muscles intact. Sclera are anicteric. ENMT: Oral mucosa is pink moist and intact. Neck: No JVD or bruits appreciated. Respiratory: Clear to auscultation bilaterally. No wheezing, rhonchi, or rales. Fair air movement. Cardiovascular: Regular rate and rhythm. Grade 2/6 systolic murmur. No edema. 2+ distal pulses. Musculoskeletal: no cyanosis or clubbing, extremities motor strength 5/5 (Right radial access intact. Mild ecchymosis. Good distal flow) Neurologic: Cognition is intact. Speech is fluent. No focal deficits. Moves all 4 extremities voluntarily. No tremor. Psychiatric: A+Ox3, euthymic affect (Mildly anxious) Results & Data Vital Signs (Past 12 Hours) Vital Signs Temp Pulse Pulse Resp BP BP Pulse Ox 10/11/24 15:00 36.8 C 85 18 115/83 96 10/11/24 13:35 92/79 L 10/11/24 13:27 85 16 96 10/11/24 12:00 37.0 C 10/11/24 11:50 118/76 10/11/24 11:45 93 H 27 H 92 10/11/24 09:53 115/85 10/11/24 09:53 115/85 10/11/24 09:45 87 16 95 10/11/24 09:00 92 H 19 93 10/11/24 09:00 100/71 10/11/24 08:32 110/76 10/11/24 08:24 100 H 19 93 10/11/24 08:00 74 10/11/24 08:00 36.8 C 10/11/24 07:00 113/80 10/11/24 06:57 73 19 93 10/11/24 06:00 75 19 102/75 92 10/11/24 05:00 83 17 118/84 93 O2 Del Method 10/11/24 15:00 Room Air 10/11/24 13:35 10/11/24 13:27 10/11/24 12:00 10/11/24 11:50 10/11/24 11:45 10/11/24 09:53 10/11/24 09:53 10/11/24 09:45 10/11/24 09:00 10/11/24 09:00 10/11/24 08:32 10/11/24 08:24 10/11/24 08:00 10/11/24 08:00 10/11/24 07:00 10/11/24 06:57 Room Air 10/11/24 06:00 Room Air 10/11/24 05:00 Room Air PG Care Time/CCT Total # of Minutes Spent Total Time Spent with Patient: Total time spent is greater than 50% in coordination of care (as documented) at patient's floor/unit and/or counseling patient: Coding Level of Care Code 84887 SUB INP/OBS CARE 2/35MIN Diagnoses Coronary artery disease I25.10 Atherogenic dyslipidemia E78.5 Abnormal thyroid blood test R79.89 ST elevation (STEMI) myocardial infarction I21.3 Involved coronary artery: unspecified coronary artery NSVT (nonsustained ventricular tachycardia) I47.29 (4) ST elevation (STEMI) myocardial infarction Involved coronary artery: unspecified coronary artery Qualified Code(s): I21.3 - ST elevation (STEMI) myocardial infarction of unspecified site
[2024-10-12] MEDS ORDERED: TICAGRELOR 90 MG TAB PO SCH
[2024-10-12 07:33] VITALS: RESP 18
[2024-10-12 08:09] LABS: BUN Creatinine Ratio 18.8 (10-20); Creatinine Clr Calc Pharmacy 65.9 ml/min; Potassium 4.6 mmol/L (3.5-5.1)
--- NOTE | 2024-10-12 10:51 | Hospitalist Progress Note ---
Date of Service October 12, 2024 Assessment & Plan (1) Coronary artery disease: (2) Atherogenic dyslipidemia: (3) Abnormal thyroid blood test: (4) Cocaine dependence in remission: Plan The patient is a 58-year-old female with a past medical history of cocaine abuse in remission who reported from a rehab facility to the ER on 10/10/2024 with complaints of chest pain found to have RCA occlusion s/p PCI with drug-eluting stent admitted for further management Assessment and plan: Multivessel CAD Distal RCA blockage s/p PCI drug-eluting stent Initial EKG with ST elevation, significant improvement in EKG post cath Cardiology consulted and following, admitted to the ICU for further management Started on aspirin/Brilinta/statin/losartan, awaiting echo 10/11 doing fine overall chest pain resolved trop trended down echo: 55-60%, segmental wall motion abnormalities, inferior STEMI grade 1 diastolic dysfunction mild to moderate MR mild 10/12 remains stable ok for discharge per Cardiology [facility]- Dr. Lazaro 10/11 (1) Coronary artery disease: Plan: Status post PCI to the RCA. Mild to moderate residual disease as described in the cath report. No further angina. She will remain on dual antiplatelet therapy with aspirin 81 mg daily and Brilinta 90 mg p.o. twice daily. For the most part her heart rate has been at target and her blood pressure has also been at target. A few highs and lows for each of those. I do not think I will start a beta-akilah at this time. Hold off on this until later or she can discuss it further with cardiology when she returns to [place]. Therefore, continue statin and angiotensin receptor akilah. Fortunately her troponin peaked at only 6435 and she has preserved LV function. Her segmental wall motion abnormality should improve significantly after revascularization. I strongly encouraged her to participate in cardiac rehab after discharge. I also strongly encouraged her to stop smoking. We need to manage her other risk factors as below. (2) Atherogenic dyslipidemia: Plan: Patient is high risk. Her untreated lipids are triglycerides 198 mg/dL, total cholesterol 264 mg/dL, LDL 186 mg/dL and HDL 38 mg/dL. None of these are at target. Under a "high risk strategy" we will try to reduce her LDL to 50% or more of her untreated baseline LDL. That makes her minimum target of 93 mg/dL. Her HDL is also low for a woman and she should try to begin exercise. She would also benefit from a low-fat diet in addition to low-cholesterol. Given her family history of cardiac disease I suspect she has heterozygous familial hyp ercholesterolemia based on these numbers. (3) Abnormal thyroid blood test: Plan: She is hypothyroid based on her TSH and free T4. This certainly can contribute to her dyslipidemia as well as give her reduced cardiac function. Therapy per endocrinology. (4) ST elevation (STEMI) myocardial infarction: (5) NSVT (nonsustained ventricular tachycardia): Plan: Very brief and asymptomatic post revascularization arrhythmia. Likely should improve with time. Does not have significant LV dysfunction which would be more suggestive of perpetually increased risk. If her blood pressure would allow a beta-akilah would be beneficial. Currently I am not confident that that can be tolerated. At least her cocaine screen was negative so she should not have any adverse effects from cocaine plus beta-akilah use. Plan If patient remains stable she will be appropriate for discharge tomorrow. I would like to see her in the office in follow-up at least once before she leaves the area. At the moment I have a 9:00 opening on either or Friday this week if she is interested. Otherwise I can see her in 2 weeks. Medication on discharge: Aspirin 81 mg p.o. daily Ticagrelor 90 mg twice a day Atorvastatin 40 mg daily Losartan 25 mg daily Levothyroxine 25 mg daily Dyslipidemia PreDM Atorvastatin 40mg po daily started ff up as outpatient Hypothyroidism: TSH elevated with low free T4 initiate 25 mcg of levothyroxine, will need outpatient follow-up in 6 weeks and repeat blood work Possible left upper wisdom tooth infection Start Augmentin 8 7 5 mg twice a day x 10 days Patient advised to monitor symptoms, if with worsening, or swelling, seek medical treatment or return to the ER immediately Also advised to establish with a dentist as soon as possible for further evaluation Hx GERD: Increase Pepcid to 20 mg twice daily Hx depression: Continue home dose of Effexor 150 mg daily Disposition return to [facility] tomorrow Admission and Anticipated Discharge Date Admission Date: October 10, 2024 Subjective ff up for STEMI etc seen resting in bed, comfortable in good spirits states she feels fine overall no chest pain, dyspnea, palpitations, dizziness report pain over the left upper wisdom tooth area, worse with biting/chewing no fever/chills, dysphagia no other symptoms ambulating in the room with no problems Review of Systems Review of Systems: all noted and negative except for above Physical Exam Physical Exam: General- oriented x 3, not in distress, speaks in sentences with no effort or accessory muscle use Eyes- anicteric Face- very mild edema left upper cheek, mild tenderness Oral- mild gum erythema L upper wisdom tooth area Neck- no JVD Lungs- clear breath sounds bilaterally, no rales/wheezes Heart- normal rate, regular rhythm; no murmurs Abdomen- normal bowel sounds, nondistended, soft, nontender Extremities- no pretibial edema, no calf tenderness Neuro- alert, oriented x 3; no gross focal neurologic deficits Skin- warm & dry Results & Data Results & Data Vital Signs (Past 12 Hours) Vital Signs Temp Pulse Resp BP Pulse Ox O2 Del Method 10/12/24 07:33 36.6 C 91 H 18 106/69 97 Room Air 10/12/24 03:41 36.9 C 79 16 98/67 L 93 Room Air 10/12/24 00:00 36.9 C 74 16 100/67 94 Room Air all noted and reviewed including below
--- NOTE | 2024-10-12 11:32 | Discharge Summary ---
Discharge Summary Date of Service October 12, 2024 Principal Dx & Hospital Course #1 = Principal Diagnosis (1) Coronary artery disease: (2) Atherogenic dyslipidemia: (3) Abnormal thyroid blood test: (4) Cocaine dependence in remission: Plan The patient is a 58-year-old female with a past medical history of cocaine abuse in remission who reported from a rehab facility to the ER on 10/10/2024 with complaints of chest pain found to have RCA occlusion s/p PCI with drug-eluting stent admitted for further management Assessment and plan: Multivessel CAD Distal RCA blockage s/p PCI drug-eluting stent Initial EKG with ST elevation, significant improvement in EKG post cath Cardiology consulted and following, admitted to the ICU for further management Started on aspirin/Brilinta/statin/losartan, awaiting echo 10/11 doing fine overall chest pain resolved trop trended down echo: 55-60%, segmental wall motion abnormalities, inferior STEMI grade 1 diastolic dysfunction mild to moderate MR mild 10/12 remains stable ok for discharge per Cardiology [facility]- Dr. Lazaro 10/11 (1) Coronary artery disease: Plan: Status post PCI to the RCA. Mild to moderate residual disease as described in the cath report. No further angina. She will remain on dual antiplatelet therapy with aspirin 81 mg daily and Brilinta 90 mg p.o. twice daily. For the most part her heart rate has been at target and her blood pressure has also been at target. A few highs and lows for each of those. I do not think I will start a beta-akilah at this time. Hold off on this until later or she can discuss it further with cardiology when she returns to [place]. Therefore, continue statin and angiotensin receptor akilah. Fortunately her troponin peaked at onl y 6435 and she has preserved LV function. Her segmental wall motion abnormality should improve significantly after revascularization. I strongly encouraged her to participate in cardiac rehab after discharge. I also strongly encouraged her to stop smoking. We need to manage her other risk factors as below. (2) Atherogenic dyslipidemia: Plan: Patient is high risk. Her untreated lipids are triglycerides 198 mg/dL, total cholesterol 264 mg/dL, LDL 186 mg/dL and HDL 38 mg/dL. None of these are at target. Under a "high risk strategy" we will try to reduce her LDL to 50% or more of her untreated baseline LDL. That makes her minimum target of 93 mg/dL. Her HDL is also low for a woman and she should try to begin exercise. She would also benefit from a low-fat diet in addition to low-cholesterol. Given her family history of cardiac disease I suspect she has heterozygous familial hypercholesterolemia based on these numbers. (3) Abnormal thyroid blood test: Plan: She is hypothyroid based on her TSH and free T4. This certainly can contribute to her dyslipidemia as well as give her reduced cardiac function. Therapy per endocrinology. (4) ST elevation (STEMI) myocardial infarction: (5) NSVT (nonsustained ventricular tachycardia): Plan: Very brief and asymptomatic post revascularization arrhythmia. Likely should improve with time. Does not have significant LV dysfunction which would be more suggestive of perpetually increased risk. If her blood pressure would allow a beta-akilah would be beneficial. Currently I am not confident that that can be tolerated. At least her cocaine screen was negative so she should not have any adverse effects from cocaine plus beta-akilah use. Plan If patient remains stable she will be appropriate for discharge tomorrow. I would like to see her in the office in follow-up at least once before she leaves the area. At the moment I have a 9:00 opening on either or Friday this week if she is interested. Otherwise I can see her in 2 weeks. Medication on discharge: Aspirin 81 mg p.o. daily Ticagrelor 90 mg twice a day Atorvastatin 40 mg daily Losartan 25 mg daily Levothyroxine 25 mg daily Dyslipidemia PreDM Atorvastatin 40mg po daily started ff up as outpatient Hypothyroidism: TSH elevated with low free T4 initiate 25 mcg of levothyroxine, will need outpatient follow-up in 6 weeks and repeat blood work Possible left upper wisdom tooth infection Start Augmentin 8 7 5 mg twice a day x 10 days Patient advised to monitor symptoms, if with worsening, or swelling, seek medical treatment or return to the ER immediately Also advised to establish with a dentist as soon as possible for further evaluation Hx GERD: Increase Pepcid to 20 mg twice daily Hx depression: Continue home dose of Effexor 150 mg daily Disposition return to [facility] tomorrow Notes For Next Care Provider repeat thyroid function test in 6 weeks Medication Changes From Visit Aspirin, Brilinta-antiplatelet for prevention of coronary disease, cardiovascular events, stent occlusion Losartan-blood pressure control Atorvastatin-control of high cholesterol Levothyroxine-thyroid hormone for low thyroid function Augmentin-antibiotic for possible tooth infection Admission HPI Per Admitting Provider The patient is a 58-year-old female with a past medical history of cocaine dependency, in remission, depression, GERD who [facility] 10[facility]10/[facility]24 with complaints of chest discomfort that has been waxing and waning over the past 2 weeks which has acutely worsened in the past 3 to 4 days and the patient reportedly became diaphoretic today. Patient is originally from [facility]. The patient's EKG showed s ignificant ST elevations in inferolateral leads. A heart alert was called prior to arrival to the ER. The patient had received aspirin/Brilinta and a bolus of heparin, her EKG continue with ST elevations. Emergent cardiac catheterization was recommended by sample carrier. On exam, the patient is resting comfortably and reports her chest pain is much improved. Does report 1/10 sternal chest pain that she relates to GERD. Patient has a history of coronary artery disease in her family. Patient's sister a few years ago from complications from MA patient also has a history of a murmur from when she was younger. Patient also reports her father had his first heart attack when he was 50 and had CABG x 4 Patient is a current smoker over the past 35 years. Troponin was elevated at 71, TSH elevated at 6.4 On arrival to the ED, labs are remarkable for WBC 11.5, anion gap 14, BUN 19, glucose 168 with a free T4 of 0.5, per patient, no history of hypothyroidism prior to arrival. The patient was admitted to the ICU s/p cardiac catheterization treated by PCI/drug-eluting stent with improvement in EKG changes Admission Exam Per Admitting Provider Constitutional: WD/WN, vitals as above + obese Eyes: PERRL, conjunctivae normal, anicteric sclerae ENMT: external ear and nose normal, oropharynx normal Neck: trachea midline, no thyromegaly Respiratory: normal respiratory effort, lungs clear to auscultation Cardiovascular: RRR, no murmur, no edema Gastrointestinal (Abdomen): normal bowel sounds, soft, nontender, no hepatosplenomegaly Musculoskeletal: no cyanosis or clubbing, extremities motor strength 5/5 Skin: no rashes, warm and dry Neurologic: PERRL, EOMI, accommodation nl, no face palsy, no dysarthria Psychiatric: A+Ox3, euthymic affect Lymphatic: no cervical or axillary lymphadenopathy Discharge Exam General- oriented x 3, not in distress, speaks in sentences with no effort or accessory muscle use Eyes- anicteric Face- very mild edema left upper cheek, mild tenderness Oral- mild gum erythema L upper wisdom tooth area Neck- no JVD Lungs- clear breath sounds bilaterally, no rales/wheezes Heart- normal rate, regular rhythm; no murmurs Abdomen- normal bowel sounds, nondistended, soft, nontender Extremities- no pretibial edema, no calf tenderness Neuro- alert, oriented x 3; no gross focal neurologic deficits Skin- warm & dry Updated Medication List Medication Instructions Recorded Confirmed Type famotidine 20 mg PO DAILY 10/10/24 10/10/24 History venlafaxine 150 mg PO DAILY 10/10/24 10/10/24 History amoxicillin 875 mg tablet 875 mg PO BID #20 tabs 10/12/24 Rx aspirin 81 mg tablet,delayed 81 mg PO DAILY #30 tabs 10/12/24 Rx release (Ecotrin Low Strength) atorvastatin 40 mg tablet 40 mg PO DAILY #30 tabs 10/12/24 Rx famotidine 20 mg tablet 20 mg PO BID 30 days #60 tabs 10/12/24 Rx levothyroxine 25 mcg tablet 25 mcg PO DAILYBB 30 days #30 tabs 10/12/24 Rx (Synthroid) losartan 25 mg tablet 25 mg PO DAILY #30 tabs 10/12/24 Rx ticagrelor 90 mg tablet (Brilinta) 90 mg PO BID #30 tabs 10/12/24 Rx Hospital Stay Data Consultations 10/10/24 13:39 ED Decision to Admit Stat 10/10/24 13:49 Consult Automatic Folder Seamer Routine 10/10/24 14:25 Consult Cardiac Rehabilitation Routine 10/10/24 15:36 Consult Hospitalist Routine Procedures Performed Operation Date: 10/10/24 13:15 Actual Procedures p Cineradiography w/Routine Exam - Mikhail Lazaro MD, PhD p Aspiration/PCI w/NAHED for Stemi - Mikhail Lazaro MD, PhD Diagnostic Imagining Performed 10/10/24 13:24 CL Cath Imgs for PACS use only Stat Pending Results Patient Have Any Pending Studies at Discharge: No Discharge Instructions Given to Patient (Per Discharging Provider) PLEASE REFER TO YOUR NEW MEDICATION LIST AND FOLLOW INSTRUCTIONS CAREFULLY. YOUR NEW MEDICATIONS INCLUDE: Aspirin, Brilinta-antiplatelet for prevention of coronary disease, cardiova scular events, stent occlusion Losartan-blood pressure control Atorvastatin-control of high cholesterol Levothyroxine-thyroid hormone for low thyroid function Augmentin-antibiotic for possible tooth infection Take a probiotic daily and eat yogurt daily for at least a whole month. Drink plenty of water. No alcohol/smoking/drugs. PLEASE CALL YOUR PRIMARY CARE PHYSICIAN OR RETURN TO THE ER IF WITH WORSENING OF SYMPTOMS, INCLUDING Chest pain, shortness of breath, palpitations, dizziness, nausea vomiting, Increase pain, swelling on your tooth, fevers or chills, etc. FOLLOW UP WITH ENTOMOLOGY TEACHER DR. LAZARO IN 2 WEEKS. Contact information outlined above. Please call his office to set up an appointment. Please follow-up with your primary care physician in 1 to 2 weeks. ACTIVITY RECOMMENDATIONS: It is common to feel weak and fatigue for a few days. * Do not drive or operate any motorized equipment for the next three days. * Limit stair usage (2 or 3 trips a day only) for the next three days. * Do not lift anything heavier than 10 pounds for the next three days. * Do not engage in vigorous exercise or any sports for the next five days. * You may shower the day after your procedure, but do not immerse the area for three days. Cleanse the site gently with soap and water. SPECIAL CARE INSTRUCTIONS: * You may replace the pressure dressing or band-aid the morning after the procedure. * After your procedure, it is normal to have a small bruise or small lump at the site. Examine your site daily for any change in the bruise or lump, redness, swelling, drainage or numbness. Notify your doctor if any change. BLEEDING: * If there is a small amount of bleeding at the site, lie down and apply firm pressure with a clean cloth for ten minutes. When the bleeding stops, lie quietly keeping the procedure limb straight for six hours. Notify your doctor as soon as possible. * If the bleeding does not stop after ten minutes or if there is a large amount of bleeding or spurting, call 911 immediately. Continue to lie down and hold firm pressure until help arrives. SKIN IRRITATION: * You may experience some redness and/or swelling in the area where radiation was administered. If any skin irritation occurs, please contact your family physician. FOLLOW UP VISIT: Keep any scheduled doctor appointments. Total Time Total Time Spent Total Time Spent (In Minutes): 50 minutes
[2024-10-12 12:11] VITALS: BP 113/81; PULSE 107; TEMP 98.4; O2SAT 95
[2024-10-13 22:08] LABS: 7-Aminoclonaz, Confirm NEGATIVE ng/mL (<25); Fentanyl, Urine 3.9 ng/mL (<0.5); Hydro-Alp Ur, GC/MS NEGATIVE ng/mL (<25); Hydroxyethylflurazepam, Conf NEGATIVE ng/mL (<50); Hydroxymidazolam Ur, GC/MS 697 ng/mL (<50); Hydroxytriazolam NEGATIVE ng/mL (<50); Lorazepam, Ur GC/MS NEGATIVE ng/mL (<50); Nordiazepam, Confirm NEGATIVE ng/mL (<50); Norfentanyl, Urine 1.8 ng/mL (<0.5); Oxazepam Ur, GC/MS NEGATIVE ng/mL (<50); Temazepam, Confirm NEGATIVE ng/mL (<50); medMATCH Fentanyl, Urine DNR; medMATCH Norfentanyl, Urine DNR
== END 2024-10-12 14:13 | disposition other institution (70) | DRG 322 ==
LOC: ED 13:19 → 1E 13:40 → SUATTDRO 13:48 → 1E 13:48 → 2S 10-11 15:22